=== PATIENT | male | born 1970 | race Caucasian/White ===

== ENCOUNTER 2016-08-12 02:10 | Emergency (ER) | payer OTHER ==
--- NOTE | ~2016-08-12 | CT4 ---
[facility] A Service of [facility] RADIOLOGY TEXT RESULTS PATIENT: KD RICHARD LOCATION: [facility] : 74 UNIT #: [id number] AGE: [address]: Danish Hicks MD SEX: M ORDER DR: [id number] [facility] [address] [place], [place] [address] [id number] MR#: [id number] Acc #: [id number] NAME: KD RICHARD : 1970 SEX: M STUDY DATE/TIME: 08/12/2016 3:27 UNIT: [facility] ROOM: STUDY DESCRIPTION: CT Abd and Pelv Wo Cont Attending Physician: Jasbir Hicks M.D. Ordering Physician: Jasbir Hicks M.D. Primary Care Physician: No Primary Care Physician MEDICAL IMAGING REPORT This report is preliminary unless electronic signature is present EXAM CT abdomen and pelvis without contrast. INDICATION Right lower quadrant abdomen pain and right-sided back pain starting today. Previous appendectomy. TECHNIQUE Axial 3 mm images were obtained through the abdomen and pelvis without IV or oral contrast. FINDINGS The lung bases are clear. The liver, gallbladder, pancreas, adrenal glands and left kidney are normal. The right kidney has an exophytic cyst arising from the upper pole measuring about 17 mm in diameter. There is moderate right hydronephrosis and this is causes by a distal ureteral stone measuring 6 mm in diameter. The spleen contains a cyst with some thin calcification in the wall. This measures 4.8 cm in maximum dimension and is very low in density. The aorta is normal in size. There is no adenopathy. The bowel is normal. The bladder and prostate gland are normal. There are postoperative changes in the lumbar spine. IMPRESSION 1. A 6 mm distal right ureteral stone causing moderate hydronephrosis. 2. Splenic cyst. 3. Postop changes of the lumbar spine. Dictated by... Carloz Barboza M.D. [facility] A Service of [facility] RADIOLOGY TEXT RESULTS PATIENT: KD RICHARD LOCATION: [facility] : 74 UNIT #: [id number] AGE: [address]: Danish Hicks MD SEX: M ORDER DR: THIS IS AN ELECTRONICALLY VERIFIED REPORT Carloz Barboza M.D. at 08/12/2016 1:21 PM FEL/bd TD: 08/12/2016 06:20 JOB #: [id number] MEDICAL IMAGING REPORT Page 1 of 1 COPY
[~2016-08-12 02:10] MED LIST: ADVIL
[2016-08-12 03:36] LABS: BASOPHIL# 0.1 X10e3 (0-0.3); BASOPHIL% 0.7 % (0-2.5); EOSINOPHIL# 0.1 X10e3 (0-0.7); EOSINOPHIL% 0.9 % (0.0-7.0); HEMATOCRIT 46.5 % (38.0-50.0); HEMOGLOBIN 16.1 gm/dL (13.0-16.0); LYMPHOCYTE# 2.2 X10e3 (1.0-3.5); LYMPHOCYTE% 21.6 % (17.0-45.0); MEAN CELL VOLUME 88.3 FL (83-96); MEAN CORPUSCULAR HEMOGLOBIN 30.6 PG (28-34); MEAN CORPUSCULAR HGB CONC 34.6 g/dL (30-36); MEAN PLATELET VOLUME 8.8 FL (6.5-11.5); MONOCYTE# 0.7 X10e3 (0-1.0); MONOCYTE% 6.6 % (3.0-12.0); NEUTROPHIL# 7.2 X10e3 (1.5-7.1); NEUTROPHIL% 70.2 % (40-75); PLATELET COUNT 191 X10e3 (140-420); RED BLOOD COUNT 5.26 X10e (3.90-5.60); RED CELL DISTRIBUTION WIDTH 14.3 % (11.0-15.5); WHITE BLOOD COUNT 10.2 X10e3 (4.0-10.5)
[2016-08-12 03:37] LABS: DIFF IND NO
[2016-08-12 04:05] LABS: ALBUMIN SERUM 4.7 g/dL (3.5-5.0); BILIRUBIN, DIRECT 0.3 mg/dL (0.0-0.2); BILIRUBIN,INDIRECT 1.8 mg/dL (0.0-0.9); BILIRUBIN,TOTAL 2.1 mg/dL (0.2-2.0); BUN/CREATININE RATIO 17.5; CALCIUM SERUM 9.5 mg/dL (8.4-10.2); CREATININE SERUM 1.2 mg/dL (0.6-1.4); GLOM FILT RATE Estimated 73.1 mL/min (>60); POTASSIUM 3.8 mmol/L (3.5-5.1); PROTEIN TOTAL SERUM 7.7 g/dL (6.0-8.3)
[2016-08-12 05:25] LABS: URINE SOURCE CLEAN CATCH
[2016-08-12 05:56] LABS: URINE APPEARANCE TURBID; URINE BLOOD 2+ (NEG); URINE COLOR DK YELLOW; URINE GLUCOSE NEG (NEG); URINE KETONE NEG (NEG); URINE LEUKOCYTE ESTERASE NEG (NEG); URINE NITRATE NEG (NEG); URINE PROTEIN TRACE (NEG); URINE SPECIFIC GRAVITY 1.031 (1.003-1.035)
[2016-08-12 05:59] LABS: URBCS1 AUWI 25-50 /[HPF] (0-2); URINE BACTERIA AUWI NEG (NEGATIVE); URINE SQUAMOUS EPITHELIAL CELL NONE SEEN /[HPF]
[2016-08-12 06:05] LABS: CULTURE INDICATED? NO; URINE BILIRUBIN NEG (NEG)
== END 2016-08-12 06:30 | disposition home or self-care (01) ==
LOC: CED 02:10
PROVIDERS: Emergency Medicine
DX: N13.2 Hydronephrosis with renal and ureteral calculous obstruction (principal)
CPT/HCPCS: 36415; 74176; 80048; 80076; 81003; 83690; 85025; 96361; 96374; 96375; 96376; 99284; J1170; J1885

== ENCOUNTER 2016-10-01 18:26 | Inpatient (IN) | payer OTHER ==
[~2016-10-01] VITALS: Ht 177.8 cm; Wt 112.5 kg
--- NOTE | ~2016-10-01 | DS ---
Unit #: [id number] #: [id number] Patient: KD RICHARD [id number] [address] [address] [id number] I MR#: [id number] NAME: KD RICHARD ROOM: 462 Age: 46 Sex: M Admission Date: 10/01/2016 : 1970 Discharge Date: 10/04/2016 Attending Physician: Michael Chowdary M.D. Primary Care Physician: Zulema Primary Care Physician DISCHARGE SUMMARY ADMITTING DIAGNOSIS Right ureteral stone with urinary tract infection and acute pyelonephritis. POSTOPERATIVE DIAGNOSIS Right ureteral stone with urinary tract infection and acute pyelonephritis, status post cystoscopy and right stent placement. ADMITTING INFORMATION The patient is a pleasant 46-year-old gentleman who presented with a right ureteral stone and fever of 103. He was admitted for further management. HOSPITAL COURSE The patient was admitted. He underwent cystoscopy and right stent placement. He was paled on Rocephin and gentamycin. He did defervesce on this. His pain was controlled. His final urine culture grew out e-coli, which was sensitive to Bactrim. He will be discharged home on Bactrim. FOLLOWUP He will follow up with Dr. Chowdary for ureteroscopy in approximately one week. He is to follow up sooner with any complaints, including temperature greater than 101, inability to tolerate fluids, pain not controlled by p.o. pain medication, chest pain, shortness of breath, unilateral lower extremity swelling or any other concerns. DISCHARGE MEDICATIONS He is to resume his admitting medications plus Bactrim and [place]. Dictated by... Keaton Robertson M.D. KHALIF/malachi TD: 10/04/2016 10:58 JOB #: [id number] Unit #: [id number] #: [id number] Patient: KD RICHARD DISCHARGE SUMMARY Page 1 of 1 X Keaton Robertson MD DISCHARGE SUMMARY
--- NOTE | ~2016-10-01 | OR ---
Unit #: [id number] #: [id number] Patient: KD RICHARD [id number] [address] [place], [place] [address] [id number] I MR#: [id number] NAME: KD RICHARD. ROOM: 462 Date of Procedure: 10/02/2016 Admission Date: 10/01/2016 Surgeon: Michael Chowdary M.D. : 1970 Attending Physician: Michael Chowdary M.D. Primary Care Physician: Primary Care Physician No OPERATIVE REPORT PREOPERATIVE DIAGNOSES Right hydronephrosis, right ureteral stone, urinary tract infection, abdominal pain. POSTOPERATIVE DIAGNOSES Right hydronephrosis, right ureteral stone, urinary tract infection, abdominal pain. PROCEDURES PERFORMED Cystoscopy, retrograde pyelogram interpretation, stent insertion right. ANESTHESIA General. ESTIMATED BLOOD LOSS Minimal. FLUIDS Crystalloid. DRAINS 6 x 28 double-J stent right ureter. SPECIMEN None. COMPLICATIONS None. CONDITION Stable. INDICATIONS FOR PROCEDURE The patient has a history of fevers, urinary tract infection, right ureteral stone, hydronephrosis, and flank pain, who presents today for urgent cystoscopy, stent insertion, and retrograde pyelogram with planned delayed stone management. The risks, benefits, and alternatives of the procedure were extensively counseled with the patient. Chief among these, bleeding, infection, injury to surrounding soft tissue, need for further procedures, obstructive uropathy, need for percutaneous nephrostomy tube, anesthetic complications. All risks were explained. Questions were answered. Unit #: [id number] #: [id number] Patient: KD RICHARD DESCRIPTION OF PROCEDURE The patient was properly identified, brought back to the cysto suite having received preoperative Rocephin and gentamicin IV. The patient was placed on the cystoscopy suite table in supine position. Following induction of general anesthesia, the patient was placed in dorsal lithotomy position. Genitals were prepped and draped in sterile fashion. A rigid scope was introduced into the urethral meatus obstruction was appreciated within the prostate. Pancystoscopy demonstrated trabeculation and diffuse erythema consistent with cannulated with Pollack catheter. Gentle retrograde pyelogram demonstrated filling defect of distal ureter with mild proximal ureteral hydronephrosis, see below. A Sensor wire was passed into the renal collecting system past the stone over which we passed a 6 x 28 double-J stent with help of the pusher. Good distal and proximal curl was seen under C-arm fluoroscopy and cystoscopic evaluation. The bladder was drained. The scope was removed. The patient tolerated the procedure well with no complications. Retrograde pyelogram interpretation: Pollack catheter engaged the right ureteral orifice. Retrograde pyelogram demonstrated a faint filling defect consistent with stone in the distal ureter, mild proximal hydronephrosis. Dictated by... Quan Glez/tony TD: 10/02/2016 11:57 JOB #: [id number] OPERATIVE REPORT Page 1 of 1 X Michael Chowdary MD X PROCEDURE OPERATIVE NOTE
--- NOTE | ~2016-10-01 | HP ---
Unit #: [id number] #: [id number] Patient: KD RICHARD [id number] [address] [place], [place] [address] [id number] I MR#: [id number] NAME: KD RICHARD. ROOM: 462 Age: 46 Sex: M Admission Date: 10/01/2016 : 1970 Attending Physician: Michael Chowdary M.D. Primary Care Physician: No Primary Care Physician HISTORY AND PHYSICAL HISTORY OF PRESENT ILLNESS This is a 46-year-old gentleman with a history of stone disease. Six weeks ago, he experienced sharp intermittent right flank pain and was diagnosed with a ureteral stone. Pain resolved. Returned on Tuesday with chills, subjective fevers, and sharp intermittent right flank pain partially relieved with Advil. Pain worsened prompting a visit to the emergency room last night at which time temperature initially checked at 102.9. Patient was given broad-spectrum antibiotics. CT demonstrated a 6 mm distal right ureteral stone with proximal hydronephrosis. Patient has been subsequently hemodynamically stable. Pain controlled on IV pain medicine. PAST MEDICAL HISTORY Stone disease and obesity. SURGICAL HISTORY Appendectomy, lower back surgery, and vasectomy. ALLERGIES No known drug allergies. MEDICATIONS See written record. SOCIAL HISTORY No tobacco, alcohol, or recreational drugs. FAMILY HISTORY Testicular cancer. REVIEW OF SYSTEMS (1) headaches. No vision change, hearing change, cough, sore throat, chest pain, shortness of breath, diarrhea, constipation, numbness or tingling in extremities, rash, or easy bruising. PHYSICAL EXAMINATION VITAL SIGNS: T. max. 102.9, T. current 98.2, 65, 17, 115/54. GENERAL APPEARANCE: Appears nontoxic. HEENT: Normocephalic and atraumatic. Extraocular muscles intact. Grossly normal hearing to gross inspection. NECK: Soft and supple. No supraclavicular lymphadenopathy. RESPIRATORY: Normal respiratory effort. Normal to palpation. ABDOMEN: Soft, obese, nontender, nondistended. No CVA tenderness. EXTREMITIES: Full range of motion. No edema bilaterally. Unit #: [id number] #: [id number] Patient: KD RICHARD PSYCH: Normal mood and affect. NEUROLOGIC: Cranial nerves, II-XII, grossly intact. DIAGNOSTIC STUDIES LABORATORY EXAMINATION: Creatinine 0.8. White blood cell count 19.1 with left shift noted. Urine culture pending. Urinalysis: 25-50 red blood cells per high power field, 100-200 white blood cells per high power, and 4+ bacteria. IMAGING: CT: 6 mm distal right ureteral stone, proximal hydronephrosis, films reviewed directly. ASSESSMENT AND PLAN Hydronephrosis, flank pain, urinary tract infection, ureteral stone right. Recommend urgent cystoscopy, stent insertion, and broad-spectrum antibiotics. Patient hemodynamically stable. Risks, benefits, and alternatives including bleeding, infection, (2) , need for further procedure with possible need for percutaneous nephrostomy tube, and anesthetic complications explained to the patient. Dictated by Quan Glez/amirah TD: 10/02/2016 10:38 JOB #: [id number] HISTORY AND PHYSICAL Page 1 of 1 X Michael Chowdary MD X HISTORY AND PHYSICAL
--- NOTE | ~2016-10-01 | CT4 ---
[facility] A Service of [facility] RADIOLOGY TEXT RESULTS PATIENT: KD RIHCARD LOCATION: [facility] : 74 UNIT #: [id number] AGE: [address]: Michael Chowdary MD SEX: M ORDER DR: [id number] [facility] [address] [facility]. [place], [place] [address] [id number] I MR#: [id number] Acc #: [id number] NAME: KD RICHARD. : 1970 SEX: M STUDY DATE/TIME: 10/01/2016 20:35 UNIT: [facility] ROOM: 67528 STUDY DESCRIPTION: CT Abd and Pelv Wo Cont Attending Physician: Michael Chowdary M.D. Ordering Physician: Danish Escalante M.D. Primary Care Physician: No Primary Care Physician MEDICAL IMAGING REPORT This report is preliminary unless electronic signature is present EXAM CT abdomen and pelvis 10/01 at 20:35 INDICATIONS Dysuria with bladder pressure and fever for 3 days. History of right-side stone. TECHNIQUE Axial noncontrast images were obtained through the abdomen and pelvis. Multiplanar reformats were obtained. Comparison made with 08/12/2016. This CT exam was performed with one or more of the following radiation dose reduction techniques: automatic control, adjustment of mA and/or kV according to patient size, and iterative reconstruction. FINDINGS ABDOMEN: Lung bases are clear. Gallbladder is normal. There is mild right hydronephrosis and hydroureter secondary to a 6 mm stone in the distal right ureter a few cm above the UVJ. This could potentially represent the same stone seen on the prior exam. Correlate with interval history. Tiny bilateral nonobstructing renal stones are seen. There is an exophytic low-density lesion in the upper pole of the right kidney measuring 2.4 cm. This is probably a cyst but outpatient ultrasound followup is recommended. Apparent splenic cyst with some calcification is unchanged. Remaining unenhanced solid organs are normal. No free fluid or adenopathy is seen. Unopacified GI tract is normal. PELVIS: Urinary bladder has some adjacent fat stranding which also extends around the prostate gland. I cannot exclude mild cystitis or prostatitis. Appendix is surgically absent. The GI tract is otherwise unremarkable. Patient is status post L4-S1 fusion with pedicle screws. IMPRESSION 1. Mild right hydronephrosis secondary to a 6 mm stone in the distal STS. [facility] A Service of [facility] RADIOLOGY TEXT RESULTS PATIENT: KD RICHARD LOCATION: [place] [address] : 74 UNIT #: [id number] AGE: [address]: Michael Chowdary MD SEX: M ORDER DR: right ureter a few cm above the UVJ. This could potentially reflect the same stone as seen on the prior study. Correlate with interval history. 2. Bilateral nonobstructing renal stones. 3. Probable cyst upper pole right kidney. Outpatient renal ultrasound is recommended to exclude solid lesion. 4. Mild fat stranding around the urinary bladder and prostate gland could reflect cystitis and/or prostatitis. 5. Appendectomy, otherwise negative unopacified GI tract. Dictated by... Gary Harmon Jr., M.D. THIS IS AN ELECTRONICALLY VERIFIED REPORT Gary Harmon Jr., M.D. at 10/02/2016 4:13 PM RIGOBERTO/mary TD: 10/02/2016 01:04 JOB #: [id number] MEDICAL IMAGING REPORT Page 1 of 1 COPY
[2016-10-01 20:03] LABS: BASOPHIL% 0.2 % (0-2.5); EOSINOPHIL% 0.1 % (0.0-7.0); HEMATOCRIT 44.1 % (38.0-50.0); HEMOGLOBIN 15.5 gm/dL (13.0-16.0); LYMPHOCYTE# 1.2 X10e3 (1.0-3.5); LYMPHOCYTE% 6.5 % (17.0-45.0); MEAN CORPUSCULAR HEMOGLOBIN 30.9 PG (28-34); MEAN CORPUSCULAR HGB CONC 35.2 g/dL (30-36); MONOCYTE# 1.5 X10e3 (0-1.0); MONOCYTE% 7.7 % (3.0-12.0); NEUTROPHIL# 16.3 X10e3 (1.5-7.1); NEUTROPHIL% 85.5 % (40-75); PLATELET COUNT 150 X10e3 (140-420); RED BLOOD COUNT 5.01 X10e (3.90-5.60); RED CELL DISTRIBUTION WIDTH 14.9 % (11.0-15.5); WHITE BLOOD COUNT 19.1 X10e3 (4.0-10.5)
[2016-10-01 20:04] LABS: DIFF IND YES
[2016-10-01 20:20] LABS: URINE SOURCE CLEAN CATCH
[2016-10-01 20:24] LABS: ALBUMIN SERUM 4.3 g/dL (3.5-5.0); BILIRUBIN, DIRECT 0.5 mg/dL (0.0-0.2); BILIRUBIN,INDIRECT 3.3 mg/dL (0.0-0.9); BILIRUBIN,TOTAL 3.8 mg/dL (0.2-2.0); BUN/CREATININE RATIO 17.77; CALCIUM SERUM 9.1 mg/dL (8.4-10.2); CREATININE SERUM 0.9 mg/dL (0.6-1.4); GLOM FILT RATE Estimated 103.5 mL/min (>60); PROTEIN TOTAL SERUM 7.5 g/dL (6.0-8.3)
[2016-10-01 20:30] LABS: URINE APPEARANCE CLOUDY; URINE BLOOD 3+ (NEG); URINE COLOR DK YELLOW; URINE GLUCOSE NEG (NEG); URINE KETONE TRACE (NEG); URINE LEUKOCYTE ESTERASE 2+ (NEG); URINE NITRATE NEG (NEG); URINE PH 7.5 (5-8); URINE PROTEIN 2+ (NEG); URINE SPECIFIC GRAVITY 1.024 (1.003-1.035); URINE UROBILINOGEN >8.0 MG/DL (NEG)
[2016-10-01 20:33] LABS: CULTURE INDICATED? YES; URBCS1 AUWI 25-50 /[HPF] (0-2); URINE BACTERIA AUWI 4+ (NEGATIVE); URINE SQUAMOUS EPITHELIAL CELL FEW /[HPF]; UWBCS1 AUWI 100-200 (0-5)
[2016-10-01 20:43] LABS: PLATELET ESTIMATE NORMAL (NORMAL)
[2016-10-02] MEDS ORDERED: FLOMAX (05:36)
[2016-10-04 03:26] LABS: HEMATOCRIT 39.8 % (38.0-50.0); HEMOGLOBIN 13.6 gm/dL (13.0-16.0); MEAN CELL VOLUME 89.6 FL (83-96); MEAN CORPUSCULAR HEMOGLOBIN 30.6 PG (28-34); MEAN CORPUSCULAR HGB CONC 34.2 g/dL (30-36); MEAN PLATELET VOLUME 9.3 FL (6.5-11.5); RED BLOOD COUNT 4.44 X10e (3.90-5.60); RED CELL DISTRIBUTION WIDTH 14.5 % (11.0-15.5)
[2016-10-04 03:57] LABS: BUN/CREATININE RATIO 18.88; CALCIUM SERUM 8.3 mg/dL (8.4-10.2); CREATININE SERUM 0.9 mg/dL (0.6-1.4); GLOM FILT RATE Estimated 103.5 mL/min (>60); POTASSIUM 4.1 mmol/L (3.5-5.1)
[2016-10-04] MEDS ORDERED: HYDROCODON-ACE1 EAC7 PO (10:40)
[2016-10-04] MEDS ORDERED: BACTRIM DS TAB1 EACH PO (10:41)
== END 2016-10-04 13:57 | disposition home or self-care (01) | DRG 690 ==
LOC: CED 18:26 → CEDOF 22:32 → CED 22:47 → C4C 10-02 01:07 → CEDOF 10-02 01:07 → C4C 10-04 13:57
PROVIDERS: Emergency Medicine; Urology
PROC: 0T768DZ Dilation of Right Ureter with Intraluminal Device, Via Natural or Artificial Opening Endoscopic (ICD-10-PCS; 2016-10-02)
PROC: BT1D1ZZ Fluoroscopy of Right Kidney, Ureter and Bladder using Low Osmolar Contrast (ICD-10-PCS; principal; 2016-10-02 11:00)
DX: N10 Acute pyelonephritis (principal); Z87.442 Personal history of urinary calculi; N13.6 Pyonephrosis; Z90.49 Acquired absence of other specified parts of digestive tract
CPT/HCPCS: 36415; 74176; 80048; 80076; 80170; 81003; 83605; 85025; 85027; 87040; 87086; 87088; 87186; 96365; 99285; C2617; J0696; J1170; J1580; J1885; J2250; J2405; J3010